=== PATIENT | male | born 1945 | race Caucasian/White ===

== ENCOUNTER 2024-12-08 10:27 | Day surgery (SDC) | payer MEDICARE, BC, SELFPAY ==
[2024-12-08 11:09] VITALS: BP 143/70
[2024-12-08 11:10] VITALS: BMI 28.0
[2024-12-08 13:37] VITALS: BP 107/56
[2024-12-08 13:52] VITALS: BP 114/51
--- NOTE | 2024-12-08 13:55 | ITS.CL.IMPLP ---
Substitute Crossing Guard - Implant Loop
Implant Loop
Procedure Report:
ILR explant
Date of Procedure: December 08, 2024
Patient : [id number]
Procedure: Linq explant
Indication: ILR at battery depletion
Explant: Reveal model number [id number]
Technique: The patient was prepped and draped in the usual fashion.��Conscious sedation was administered and local anesthetic was applied to the left��prepectoral subcutaneous tissue. Preoperative conscious sedation was given. A subcutaneous pocket
was entered with a stab incision and blunt dissection. Hemostasis was excellent. The device was identified and the capsule was freed with blunt and sharp dissection and the device was removed from the pocket.. The incision was closed in a single
layer with 3.0 Vicryl absorbable suture. The skin was closed with steri-strips. The estimated blood��loss was minimal. There were no complications.
Conclusion: Uncomplicated insertable loop explant
Recommendation: Routine wound care.
cc: Dr. Dawit Vang
[2024-12-08 14:07] VITALS: BP 122/71
[2024-12-08 14:22] VITALS: BP 123/52
[2024-12-08 14:37] VITALS: BP 116/83
== END 2024-12-08 15:00 | disposition home or self-care (01) ==
LOC: CATH 10:27
PROVIDERS: ATTENDING PHYSICIAN Internal Medicine Cardiovascular Disease; FAMILY PHYSICIAN Student in an Organized Health Care Education/Training Program
DX: Z09 Encounter for follow-up examination after completed treatment for conditions other than malignant neoplasm (principal); I48.19 Other persistent atrial fibrillation; I10 Essential (primary) hypertension; E78.5 Hyperlipidemia, unspecified; I34.0 Nonrheumatic mitral (valve) insufficiency
CPT/HCPCS: 33286